=== PATIENT | female | born 1950 | race Caucasian/White ===

== ENCOUNTER 2020-05-27 13:26 | Outpatient (RCR) | payer MEDICARE, SELFPAY ==
[2020-05-27 13:35] VITALS: BP 135/61; PULSE 61; RESP 16; TEMP 36.6
--- NOTE | 2020-05-27 16:45 | PCM.WC.HP ---
(1) Second degree burn of left foot Status: Acute Current Visit: Yes Qualifiers: Encounter type: initial encounter Qualified Code(s): T25.222A - Burn of second degree of left foot, initial encounter Code(s): T25.222A - Burn of second degree of left foot, initial encounter (2) Hypertension Status: Chronic Current Visit: Yes Code(s): I10 - Essential (primary) hypertension (3) Hyperlipidemia Status: Acute Current Visit: Yes Code(s): E78.5 - Hyperlipidemia, unspecified History of Present Illness Date of Service: 05/27/20 Chief Complaint: Degree burn to left foot History of Wound: This is a 70-year-old white female who presents to the wound healing center today with complaint of second-degree burn to her left foot. The initial injury started on 05/18/2020 after she spilled boiling hot water on her left foot while trying to make tea. Since then she notes that she has popped the blister to help drain some of the fluid and has been applying triple antibiotic ointment and Telfa to the site. She denies any increase in pain, she denies any purulent drainage or fever chills or any other signs of systemic or localized infection. She does note that her Tdap was updated within the past 5 years. She has a past medical history as listed above. She denies any other acute concerns at this time. All other systems reviewed and negative with exception of those listed above. Past Medical History Past Medical History: Chronic Problems Hypertension (Chronic) Surgical History: no surgical history Allergies/Adverse Reactions: Allergies No Known Allergies Allergy (Verified 05/27/20 13:59) Home Medications: Ambulatory Orders Medication Instructions Recorded Lisinopril/Hydrochlorothiazide 1 ea PO DAILY 05/27/20 [Lisinopril-Hctz 20-25 mg Tab] Metoprolol Tartrate [Lopressor] 100 mg PO BID 05/27/20 Pravastatin [Pravachol] 80 mg PO QHS 05/27/20 Smoking Status: Former smoker Review of Systems Constitutional: Denies: Chills, Fever, Weight Change Eyes: Denies: Pain, Vision Change HEENT: Denies: Difficulty Hearing, Difficulty Swallowing, Sinus Congestion Cardiovascular: Denies: Chest Pain, Palpitations Respiratory: Denies: Cough, Shortness of Breath Gastrointestinal: Denies: Diarrhea, Nausea, Vomiting Genitourinary: Denies: Dysuria, Hematuria Skin: Reports: Wounds - see hpi Endocrine: Denies: Heat/ Cold Intolerance, Polydipsia, Polyuria Hematologic/ Lymphatic: Denies: Easy Bruising, Easy Bleeding - Physical Exam Vital Signs Temp Pulse Resp BP 97.9 F 61 16 135/61 H 05/27/20 13:35 05/27/20 13:35 05/27/20 13:35 05/27/20 13:35 General: Alert, Oriented x3, Cooperative, No apparent distress HEENT: PERRLA, EOMI Neck: Supple, No JVD Lungs: Clear to auscultation, Normal air movement, No rhonchi, No wheeze Cardiovascular: Regular rate, Regular Rhythm, Normal S1, Normal S2 Abdomen: Soft, Non Tender, Obese Skin: No rashes, No breakdown, Ulcer/ Wound - Second-degree burn to left great toe with large amount of devitalized tissue present, after debridement large amount of devitalized tissue was removed patient tolerated well, no signs of obvious infection at this time. Wound Measurements and Assessment WC - Nurse 1 - General Ulcer Measurement Start: 05/27/20 13:35 Freq: Status: Active Protocol: Activity Type Activity Date Activity User E-Sign Co-Sign Detail Recorded Client Recorded Date Recorded By Document 05/27/20 13:35 [facility] [id number] 05/27/20 13:57 [facility] 05/27/20 13:35 Wound Center Nurse 1 [Ulcer Assessment] #1- L GR TOE BURN -Combined with other wound No -Current Size (cm) - Length 8.5 -Current Size (cm) - Width 7.2 -Current Size (cm) - Depth 0.1 -Total Square Cm 61.20 -Date of Last Picture (Recall this 05/27/20 field) -Photo Taken Yes -Epithelialization None Present -Tunneling No -Undermining/Tunneling No -Circular Undermining No -Exudate Amt Small -Exudate Type Serous -Wound Margin Distinct, Outline Attached -Texture (Martha-wound Skin Appearance) Assessed -Moisture (Martha-wound Skin Appearance Assessed, ) Maceration -Color (Martha-wound Skin Appearance) Assessed, Erythema,Palor -Temperature (Martha-wound Skin No Abnormality Appearance) (Pt Warm) -Tenderness on Palpation (Martha-wound Yes Skin Appearance) -Ulcer Cleansing Rinsed/ Irrigated with Saline -Foul Odor after Cleansing No -Anesthetic Used 4% Lidocaine Solution [Edema Assessment] -Lower Limb Edema Present Yes -Right Calf (cm) 37.9 -Right Ankle (cm) 21.2 -Left Calf (cm) 39.3 -Left Ankle (cm) 22.6 WC - Nurse 2 - General Ulcer CM Notes Start: 05/27/20 13:35 Freq: Status: Active Protocol: Activity Type Activity Date Activity User E-Sign Co-Sign Detail Recorded Client Recorded Date Recorded By Document 05/27/20 14:19 MW [id number] 05/27/20 14:26 MW 05/27/20 14:19 Wound Center Nurse 2 [Procedure/Treatment] #1- L GR TOE BURN -Time 14:21 -Correct Patient Yes -Correct Side, Site, Position Yes -Correct Procedure Yes -Procedure Performed Yes -Type of Procedure Debridement -Clinical Debridement Subcutaneous -Post Debridement Size (cm) - Length 8.5 -Post Debridement Size (cm) - Width 6.5 -Post Debridement Size (cm) - Depth 0.1 -Total Square (cm) 55.25 -Wound/Ulcer Outcome Not Healed -Ulcer Cleansing Rinsed/ Irrigated with Saline -Foul Odor after Cleansing No -Bioengineered Tissue No -Bleeding Controlled with Pressure -Offloading No -Treatment Response Procedure Tolerated Well [See Physician Procedure note for Specifics] Pain Scale: 0-10 Numeric [Pain] -Is Patient Pain Free? Yes Musculoskeletal: No Tenderness to Palpation of Joints or Extremities, No Muscle Wasting, Arthritic Changes Neurological: Neuro grossly intact Psych/Mental Status: Normal Affect, Appropriate, Alert and oriented to time, place, person, mood and affect Debridement Note Post-Debridement Measurements/Treatment - Nurse 2 - General Ulcer CM Notes Start: 05/27/20 13:35 Freq: Status: Active Protocol: Activity Type Activity Date Activity User E-Sign Co-Sign Detail Recorded Client Recorded Date Recorded By Document 05/27/20 14:19 MW [id number] 05/27/20 14:26 MW 05/27/20 14:19 Wound Center Nurse 2 #1- L GR TOE BURN -Time 14:21 -Correct Patient Yes -Correct Side, Site, Position Yes -Correct Procedure Yes -Procedure Performed Yes -Type of Procedure Debridement -Clinical Debridement Subcutaneous -Post Debridement Size (cm) - Length 8.5 -Post Debridement Size (cm) - Width 6.5 -Post Debridement Size (cm) - Depth 0.1 -Total Square (cm) 55.25 -Wound/Ulcer Outcome Not Healed -Ulcer Cleansing Rinsed/ Irrigated with Saline -Foul Odor after Cleansing No -Bioengineered Tissue No -Bleeding Controlled with Pressure -Offloading No -Treatment Response Procedure Tolerated Well Pain Scale: 0-10 Numeric Is Patient Pain Free? Yes Wound debrided: 2nd Degree burn left foot Laterality: Left Type of Debridement: Excisional debridement Anesthesia Used: 5% Lidocaine Gel Depth: in the subcutaneous layer Percentage of wound debrided: 100 Instrument Used: 5mm curette, #15 blade Tissue Removed: deVitalized tissue, slough, Severity: Fat Layer Exposed Amount of bleeding with debridement: Mild Bleeding Controlled with: Pressure Patient tolerated procedure well Assessment/Plan Active Problems Second degree burn of left foot (Acute) Hypertension (Chronic) Hyperlipidemia (Acute) Assessment: See above diagnoses Plan: The patient was seen and examined at the wound center today and was updated on the plan of care. A subcutaneous debridement was performed today. The patient tolerated the procedure well. The patients wound care will consist of: Application of bacitracin, Adaptic, and gauze change daily. Discontinue bacitracin if site becomes mass indurated, instructed patient on this. Wound cultures were collected. Baseline bloodwork and vascular studies held. Patient educated on the importance of diet on wound healing and instructed to increase protein and vitamin C intake. Patient verbalized understanding. Patient will follow up at wound healing center in one week or sooner if needed. This note was generated with [employer] software. It may contain incorrect words, spelling, and punctuation that were not noted in checking the note before signing. Office Visits / Consults: [id number] OV L3 New [id number]: [id number] Melanie subq tissue 20 sq cm/< Add On Codes: [id number] Melanie subq tissue add-on
== END 2020-05-28 23:59 ==
LOC: WC 13:26
PROVIDERS: PCP Nurse Practitioner Adult Health; Referring Provider Nurse Practitioner Family; Visit Provider Nurse Practitioner Family
DX: T25.222A Burn of second degree of left foot, initial encounter (principal); I10 Essential (primary) hypertension; E78.5 Hyperlipidemia, unspecified; Z79.899 Other long term (current) drug therapy; Z87.891 Personal history of nicotine dependence
CPT/HCPCS: 11042; 11045; 16020; 87070; 87075; 87077; 87186; 87205; 99203; G0463

== ENCOUNTER 2020-06-03 08:46 | Outpatient (RCR) | payer MEDICARE, SELFPAY ==
[2020-05-29 00:44] VITALS: BP 135/61; PULSE 61; RESP 16; TEMP 36.6
[2020-06-03 13:04] VITALS: BP 124/69; PULSE 66; RESP 18; TEMP 36.1; O2SAT 98
--- NOTE | 2020-06-03 21:38 | PN.PCM_ITS ---
(1) Second degree burn of left foot Status: Acute Qualifiers: Code(s): T25.222A - Burn of second degree of left foot, initial encounter (2) Hyperlipidemia Status: Acute Code(s): E78.5 - Hyperlipidemia, unspecified (3) Hypertension Status: Chronic Code(s): I10 - Essential (primary) hypertension Type of Wound Date of Service: 06/03/20 Chief Complaint: second Degree burn to left foot History of Wound: This is a 70-year-old white female who presents to the wound healing center today with complaint of second-degree burn to her left foot. The initial injury started on 05/18/2020 after she spilled boiling hot water on her left foot while trying to make tea. Since then she notes that she has popped the blister to help drain some of the fluid and has been applying triple antibiotic ointment and Telfa to the site. She denies any increase in pain, she denies any purulent drainage or fever chills or any other signs of systemic or localized infection. She does note that her Tdap was updated within the past 5 years. She has a past medical history as listed above. She denies any other acute concerns at this time. All other systems reviewed and negative with exception of those listed above. Progress of Wound: 06/03/2020?patient's burn Is healed without any signs of infection at this time. Patient may continue with covering with Adaptic and gauze for the next week. Instructed to take 5 days of her antibiotic due to her cultures growing staph. Denies any acute concerns at this time. The patient otherwise denies any fever, chills, nausea, vomiting, shortness of breath, chest pain or pressure, palpitations, orthopnea, lower extremity edema, syncope or presyncopal episodes. - Physical Exam Vital Signs Temp Pulse Resp BP Pulse Ox 97.0 F L 66 18 124/69 H 98 06/03/20 13:04 06/03/20 13:04 06/03/20 13:04 06/03/20 13:04 06/03/20 13:04 General: Alert, Oriented x3, Cooperative, No apparent distress HEENT: Atraumatic Oral: Moist Mucosa Neck: Supple Lungs: Clear to auscultation, Normal air movement Cardiovascular: Regular rate, Regular Rhythm Abdomen: Soft Extremities: No clubbing, No cyanosis, No edema Skin: Ulcer/ Wound - Second-degree burn healed without any signs of infection at this time Wound Measurements and Assessment - Nurse 1 - General Ulcer Measurement Start: 06/03/20 13:04 Freq: Status: Discharge Protocol: Activity Type Activity Date Activity User E-Sign Co-Sign Detail Recorded Client Recorded Date Recorded By Document 06/03/20 13:04 MT [id number] 06/03/20 13:10 MT Edit Status 06/03/20 14:49 BKG DAEMON Active=>Discharge [id number] 06/03/20 14:49 BKG DAEMON 06/03/20 13:04 Wound Center Nurse 1 [Ulcer Assessment] #1- L GR TOE BURN -Current Size (cm) - Length 0.1 -Current Size (cm) - Width 0.1 -Current Size (cm) - Depth 0.1 -Total Square Cm 0.01 -Exudate Amt Small -Exudate Type Serosanguineous -Wound Margin Flat & Intact -Granulation Amt Large (67-100%) -Granulation Quality Pale,[place],Red -Slough/Fibrin No -Texture (Martha-wound Skin Appearance) Assessed -Moisture (Martha-wound Skin Appearance Assessed, ) Maceration -Color (Martha-wound Skin Appearance) Assessed -Temperature (Martha-wound Skin No Abnormality Appearance) (Pt Warm) -Tenderness on Palpation (Martha-wound No Skin Appearance) -Ulcer Cleansing Rinsed/ Irrigated with Saline -Foul Odor after Cleansing No -Anesthetic Used 4% Lidocaine Solution [Edema Assessment] -Lower Limb Edema Present NA - Nurse 2 - General Ulcer CM Notes Start: 06/03/20 13:04 Freq: Status: Discharge Protocol: Activity Type Activity Date Activity User E-Sign Co-Sign Detail Recorded Client Recorded Date Recorded By Document 06/03/20 13:41 MW [id number] 06/03/20 13:42 MW Edit Status 06/03/20 14:49 BKG DAEMON Active=>Discharge [id number] 06/03/20 14:49 BKG DAEMON 06/03/20 13:41 Wound Center Nurse 2 [Procedure/Treatment] #1- L GR TOE BURN -Time 13:42 -Correct Patient Yes -Correct Side, Site, Position Yes -Correct Procedure Yes -Procedure Performed No -Post Debridement Size (cm) - Length 0 -Post Debridement Size (cm) - Width 0 -Post Debridement Size (cm) - Depth 0 -Total Square (cm) 0 -Wound/Ulcer Outcome Healed- Epithelialized [See Physician Procedure note for Specifics] Pain Scale: 0-10 Numeric [Pain] -Is Patient Pain Free? Yes Neurological: Neuro grossly intact Psych/Mental Status: Normal Affect, Appropriate, Alert and oriented to time, place, person, mood and affect Debridement Note Post-Debridement Measurements/Treatment WC - Nurse 2 - General Ulcer CM Notes Start: 06/03/20 13:04 Freq: Status: Discharge Protocol: Activity Type Activity Date Activity User E-Sign Co-Sign Detail Recorded Client Recorded Date Recorded By Document 06/03/20 13:41 MW [id number] 06/03/20 13:42 MW 06/03/20 13:41 Wound Center Nurse 2 #1- L GR TOE BURN -Time 13:42 -Correct Patient Yes -Correct Side, Site, Position Yes -Correct Procedure Yes -Procedure Performed No -Post Debridement Size (cm) - Length 0 -Post Debridement Size (cm) - Width 0 -Post Debridement Size (cm) - Depth 0 -Total Square (cm) 0 -Wound/Ulcer Outcome Healed- Epithelialized Pain Scale: 0-10 Numeric Is Patient Pain Free? Yes No debridement was completed today Assessment/Plan Assessment: See above diagnoses Plan: The patient was seen and examined at the wound center today and was updated on the plan of care. She will be discharged from the wound healing center today as her burn is healed without any signs of infection at this time. She may cover with Adaptic and gauze for the next week for wound protection. May also complete 5 days of her antibiotics since her culture grew staph. Patient educated on the importance of diet on wound healing and instructed to increase protein and vitamin C intake. Patient verbalized understanding. This note was generated with [employer] dictation software. It may contain incorrect words, spelling, and punctuation that were not noted in checking the note before signing. Office Visits / Consults: [id number] OV L3 Est
== END 2020-06-03 14:49 | disposition home or self-care (01) ==
LOC: WC 08:46
PROVIDERS: PCP Nurse Practitioner Adult Health; Referring Provider Nurse Practitioner Family; Visit Provider Nurse Practitioner Family
DX: T25.222A Burn of second degree of left foot, initial encounter (principal); E78.5 Hyperlipidemia, unspecified; I10 Essential (primary) hypertension
CPT/HCPCS: 99213; G0463